=== PATIENT | male | born 1975 | race Caucasian/White ===

== ENCOUNTER 2022-04-17 23:34 | Emergency (ER) | payer OTHER ==
[2022-04-17 23:48] VITALS: BP 128/90; PULSE 84; TEMP 98.1; BMI 29.1
[2022-04-18] MEDS ORDERED: DIPHTH,PERTUSS(ACELL),TET 0.5 ML DISP.SYRIN IM ONE ×2 (00:38→01:28)
== END 2022-04-18 02:40 | disposition home or self-care (01) ==
LOC: JER 23:34
PROC: 0HQ1XZZ Repair Face Skin, External Approach (ICD-10-PCS; principal; 2022-04-17)
PROC: 3E0234Z Introduction of Serum, Toxoid and Vaccine into Muscle, Percutaneous Approach (ICD-10-PCS; 2022-04-17)
DX: S02.2XXA Fracture of nasal bones, initial encounter for closed fracture (principal); S01.81XA Laceration without foreign body of other part of head, initial encounter; W06.XXXA Fall from bed, initial encounter
CPT/HCPCS: 12011-25; 70450-TC; 70486-TC; 72125-TC; 82962; 90471; 90715; 99284-25